=== PATIENT | female | born 1950 | race Caucasian/White ===

== ENCOUNTER 2016-10-10 16:57 | Inpatient (IN) | payer MEDICARE, BC ==
--- NOTE | ~2016-10-10 | DS ---
Discharge Summary [facility] [address] [place]. [address] NAME: TOÑO SY : 50 STATUS : DIS IN PAT#: [id number] AGE: 66 ADM/REG DATE : 10/10/16 MR#: [id number] REPORT SERV DATE: 10/16/16 DICTATED BY: CONNIE WHALEY II DATE: 10/15/16 REPORT STATUS : Draft TRANSCRIBED BY: MODBarbara DATE: 10/15/16 ADMISSION DATE: 10/10/2016 DISCHARGE DATE: 10/15/2016 DISCHARGE DIAGNOSES: 1. Intraabdominal abscess, status post percutaneous drain. 2. Peritoneal mesothelioma. 3. Gastroesophageal reflux disease. 4. Hypertension. 5. Sepsis, POA. CONSULTS: Dr. Olmos with [facility] and Dr. Garcia with [facility]. PROCEDURE: CT-guided drain placement into presacral abscess. BRIEF HISTORY OF PRESENT ILLNESS: The patient is a 66-year-old female with the above history who presents to [facility] due to nausea, vomiting, and fever. For detailed history and physical examination, please see Joselin Ron's note from 10/10/2016. HOSPITAL COURSE: On admission, the patient had a temperature of 101 with a white count of 21.[address] abdomen and pelvis showed a pelvic abscess of about 8.7 x 4.7 cm. The patient was initially on cefepime and Flagyl. Her white count came down. Culture data from the abscess drain showed growth of Enterococcus faecalis and Enterococcus avium, both sensitive to Levaquin. Currently, she has some persistent output from the drain, so we will leave the drain in and extend her course of antibiotics to about eight more days, though she will need followup to reassess drain output for drain removal. The patient is otherwise stable for discharge. DISCHARGE MEDICATIONS: 1. Wellbutrin 200 mg p.o. b.i.d. 2. BuSpar 15 mg p.o. t.i.d. 3. Restasis drops b.i.d. 4. Folic acid 1 mg p.o. daily. 5. Synthroid 125 mcg p.o. daily. 6. Imodium p.r.n. 7. Martha 180 mg p.o. q.h.s. 8. Remeron 45 mg p.o. q.h.s. 9. Prilosec 20 mg p.o. daily. 10.Levaquin 750 mg p.o. daily x8 days. 11.Albuterol p.r.n. 12.Oxycodone 10 mg p.o. q.4 hours p.r.n. 13.Zofran p.r.n. 14.Crestor 10 mg p.o. q.h.s. 15.Lasix 40 mg p.o. daily p.r.n. edema. 16.Klor-Con 40 mEq p.o. daily. 17.Azilsartan/chlorthalidone one tab p.o. daily. Discharge Summary [address] [address] NAME: TOÑO SY : 50 STATUS : DIS IN PAT#: [id number] AGE: 66 ADM/REG DATE : 10/10/16 MR#: [id number] REPORT SERV DATE: 10/16/16 DICTATED BY: CONNIE WHALEY II DATE: 10/15/16 REPORT STATUS : Draft TRANSCRIBED BY: SHANA DATE: 10/15/16 DISCHARGE INSTRUCTIONS: The patient's drain will be left in place, and she will follow up with Dr. Olmos in one to two weeks. Otherwise, she will follow up with Surgery in [place] as scheduled next week. DORIS/SHANA Connie Whaley II, MD / [id number] CC: MD Amada Joy II, M.D.
--- NOTE | ~2016-10-10 | HP ---
History And Physical [place] [id number] [facility] [place]. [address] NAME: TOÑO SY : 50 STATUS : ADM IN [facility]#: [id number] AGE: 66 ADM/REG DATE : 10/10/16 MR#: [id number] REPORT SERV DATE: 10/11/16 DICTATED BY: MANDEEP RON DATE: 10/10/16 REPORT STATUS : Draft TRANSCRIBED BY: SHANA DATE: 10/10/16 DATE OF ADMISSION: 10/10/2016 CHIEF COMPLAINT: Nausea, vomiting, fever. HISTORY OF PRESENT ILLNESS: This patient is a 66-year-old female, who presented as a direct admission from Dr. Huan Olmos's office. The patient does present with a history of peritoneal mesothelioma, recently underwent cytoreductive surgery at [facility]. At that time, she underwent intraperitoneal chemotherapy. The patient presented in Dr. Olmos's office with complaints of fever, chills, nausea, and vomiting. The patient also adds that she has had ongoing abdominal pain, slight drainage at incision site. The patient was recently discharged from [place] on 09/21/2016. The patient states that fever started on 10/07/2016. REVIEW OF SYSTEMS: Otherwise negative review of systems except what is listed above. PAST MEDICAL HISTORY: 1. Peritoneal mesothelioma. 2. Hyperlipidemia. 3. Hypertension. 4. Hypothyroidism. 5. Rheumatoid arthritis. 6. Osteoarthritis. 7. Sleep apnea. PAST SURGICAL HISTORY: 1. Tonsillectomy. 2. Left knee replacement. 3. Lumbar fusion. 4. Exploratory lap, 2015. 5. Cytoreductive surgery, 09/10/2016. SOCIAL HISTORY: The patient is . Lives with daughter. Has 2 children. Denies smoking, denies alcohol, and denies illicit drug use. ALLERGIES: THE PATIENT IS ALLERGIC TO COMPAZINE, PENICILLIN, AND PHENERGAN. PHYSICAL EXAMINATION: VITAL SIGNS: O2 sat is 93% on room air, temperature is 101.1, pulse is 100, respirations are 20, blood pressure is 139/63. GENERAL: This patient is alert and oriented in no acute distress. NECK: No JVD. No nodes. CHEST: Nontender to touch. LUNGS: Clear bilateral. No wheezes, rales, or rhonchi. CARDIOVASCULAR: The patient is tachycardic. No murmurs, rubs, or gallops. History And Physical [place] [address] [facility] [place]. [address] NAME: TOÑO SY : 50 STATUS : ADM IN PAT#: [id number] AGE: 66 ADM/REG DATE : 10/10/16 MR#: [id number] REPORT SERV DATE: 10/11/16 DICTATED BY: MANDEEP RON DATE: 10/10/16 REPORT STATUS : Draft TRANSCRIBED BY: MODL DATE: 10/10/16 ABDOMEN: Tender to touch surgical site, slight drainage at umbilical area. Last bowel movement 10/10/2016. EXTREMITIES: No cyanosis, no edema. LABORATORY DATA: To be obtained. HOME MEDICATION LIST: To be obtained. IMAGING: To be obtained. ASSESSMENT AND PLAN: 1. Possible intraabdominal abscess. The patient's [facility] WBC count was 23,000. We will obtain laboratory data, cultures, CT of abdomen, and the patient will be started on cefepime. 2. Nausea and vomiting due to possible intraabdominal abscess. It has been ongoing for approximately days. The patient will be started on a clear liquid diet with Ensure, IV fluids, and Zofran as needed. 3. Peritoneal mesothelioma. The patient did receive intraperitoneal chemotherapy at [place]. The patient is followed by Dr. Olmos and will consult Oncology to follow during hospital stay. 4. Abdominal pain due to possible intraabdominal abscess. The patient will be provided with Dilaudid p.r.n. as needed for pain. 5. Hypertension. The patient does present with a history of hypertension, we will add hydralazine p.r.n. as needed to monitor blood pressure as needed and we will continue to monitor blood pressure. 6. The patient is a full code. The patient will be followed by Dr. Raul Zarate during her hospital stay. [facility]ANSON/MODL Mandeep Ron NP / [id number] CC: MD Amada Shanks M.D.
[~2016-10-10 16:57] MED LIST: ACET500CAP PO; ALLEGRA180 PO; BUSPAR5 PO; CALTRA600D PO; CO Q-10200 MG PO; CRANBERRY FRUIT PO; CRESTOR10 PO; CYANO1000T PO; EDARBYCLOR 40-1 EAC1 PO; FISH OIL1200 MG PO; FLONASE NAS; FOLIC PO; K500 PO; KLOR-CON M2020 MEQ PO; L40 PO; MAGNESIUM PO; MAXALTODT1 PO; MERIBIN5 MG PO; MUCINEX1200 MG PO; OSTEO BI-FLEX1 EACH PO; PRILO PO; PROAIR HFA INH; REMERON45 MG PO; RESTASIS OPH; ROXICODONE15 MG PO; SYN125 PO; TUMERIC PO; ULTRAM50 PO; WELLBUTRIN200 MG PO; [UNRECOGNIZED DRUG - OTHER] OPH
[2016-10-10 20:31] LABS: BASOPHILS 0.1 %; BASOPHILS ABSOLUTE 0.02 10/3/uL (0.0-0.16); EOSINOPHILS 0.1 %; EOSINOPHILS ABSOLUTE 0.02 10/3/uL (0.0-0.53); IMMATURE GRANULOCYTES 0.3 %; IMMATURE GRANULOCYTES ABSOLUTE 0.06 10/3/uL (0.0-0.11); LYMPHOCYTES 3.3 %; LYMPHOCYTES ABSOLUTE 0.72 10/3/uL (0.67-4.30); MEAN CORPUSCULAR HEMOGLOB 30.8 pg (26.0-34.0); MEAN CORPUSCULAR VOLUME 95.7 fL (80-100); MEAN PLATELET VOLUME 9.4 fL (9.2-13.0); MONOCYTES 5.9 %; MONOCYTES ABSOLUTE 1.29 10/3/uL (0.21-1.20); NEUTROPHILS 90.3 %; NEUTROPHILS ABSOLUTE 19.62 10/3/uL (2.02-8.40); RBC DISTRIBUTION WIDTH 16.3 % (12.0-16.0)
[2016-10-10 20:32] LABS: HEMATOCRIT 26.7 % (36.0-48.0); HEMOGLOBIN 8.6 g/dL (12.0-16.0); MEAN CORPUS HGB CONC 32.2 g/dL (32.0-36.0); RED CELL COUNT 2.79 10/6/uL (4.0-5.6); WHITE BLOOD CELLS 21.7 10/3/uL (4.5-10.5)
[2016-10-10 20:33] LABS: MANUAL DIFF NO %; PLATELET COUNT 611 10/3/uL (150-400)
[2016-10-10 20:46] LABS: ALKALINE PHOSPHATASE 105 U/L (45-117); CHLORIDE, SERUM 97 MMOL/L (96-112); CO2 (CARBON DIOXIDE) 28 MMOL/L (24-34); CREATININE 1.21 MG/DL (0.55-1.02); GFR AFRICAN AMERICAN 54 ML/MIN (>=60); GFR NON AFRICAN AMERICAN 47 ML/MIN (>=60); GLUCOSE, SERUM 109 MG/DL (60-99); POTASSIUM, SERUM 3.1 MMOL/L (3.5-5.3); SGOT(AST) 15 U/L (5-40); SGPT(ALT) 8 U/L (5-65); SODIUM, SERUM 137 MMOL/L (135-148); TOTAL BILIRUBIN 0.8 MG/DL (0-1.2); TOTAL PROTEIN 7.2 G/DL (6.0-8.5)
[2016-10-10 20:47] LABS: A/G RATIO 0.5 (0.7-1.9); ALBUMIN 2.5 G/DL (3.5-5.0); BUN (BLOOD UREA NITROGEN) 7 MG/DL (6-23); CALCIUM, SERUM 8.4 MG/DL (8.5-10.4); GLOBULIN 4.7 G/DL (2.5-4.1)
[2016-10-10 21:22] LABS: PROCALCITONIN 0.52 ng/mL (<0.5)
[2016-10-11 06:04] LABS: BASOPHILS 0.2 %; BASOPHILS ABSOLUTE 0.03 10/3/uL (0.0-0.16); EOSINOPHILS 0.5 %; EOSINOPHILS ABSOLUTE 0.08 10/3/uL (0.0-0.53); HEMATOCRIT 27.1 % (36.0-48.0); HEMOGLOBIN 8.6 g/dL (12.0-16.0); IMMATURE GRANULOCYTES 0.3 %; IMMATURE GRANULOCYTES ABSOLUTE 0.05 10/3/uL (0.0-0.11); LYMPHOCYTES 7.5 %; LYMPHOCYTES ABSOLUTE 1.31 10/3/uL (0.67-4.30); MEAN CORPUS HGB CONC 31.7 g/dL (32.0-36.0); MEAN CORPUSCULAR HEMOGLOB 30.7 pg (26.0-34.0); MEAN CORPUSCULAR VOLUME 96.8 fL (80-100); MEAN PLATELET VOLUME 9.2 fL (9.2-13.0); MONOCYTES 7.2 %; MONOCYTES ABSOLUTE 1.26 10/3/uL (0.21-1.20); NEUTROPHILS 84.3 %; NEUTROPHILS ABSOLUTE 14.77 10/3/uL (2.02-8.40); PLATELET COUNT 597 10/3/uL (150-400); RBC DISTRIBUTION WIDTH 16.4 % (12.0-16.0); WHITE BLOOD CELLS 17.5 10/3/uL (4.5-10.5)
[2016-10-11 06:07] LABS: MANUAL DIFF NO %
[2016-10-11] MEDS ORDERED: PROAIR HFA PO (17:14)
[2016-10-11] MEDS ORDERED: CLINDA150 PO (17:14)
[2016-10-11] MEDS ORDERED: RESTASIS OPH (17:14)
[2016-10-11] MEDS ORDERED: FOLIC PO (17:15)
[2016-10-11] MEDS ORDERED: OXYCOD PO (17:16)
[2016-10-11] MEDS ORDERED: BUSPAR15 M1 PO (17:16)
[2016-10-11] MEDS ORDERED: ZOFRAN8 PO (17:17)
[2016-10-11] MEDS ORDERED: CIP5 PO (17:17)
[2016-10-11] MEDS ORDERED: IMOD PO (17:18)
[2016-10-11] MEDS ORDERED: REMERON45 MG PO (17:18)
[2016-10-11] MEDS ORDERED: LOVENOX SC (17:18)
[2016-10-11] MEDS ORDERED: CRESTOR10 PO (17:18)
[2016-10-11] MEDS ORDERED: TREXALL10 MG PO (17:19)
[2016-10-11] MEDS ORDERED: OXYCON10 PO (17:19)
[2016-10-11] MEDS ORDERED: L40 PO (17:20)
[2016-10-11] MEDS ORDERED: WELLBUTRIN200 MG PO (17:21)
[2016-10-11] MEDS ORDERED: KLOR-CON M2020 MEQ PO (17:21)
[2016-10-11] MEDS ORDERED: EDARBYCLOR 40-1 EAC1 PO (17:21)
[2016-10-11] MEDS ORDERED: LEVOTHYROXIN125 MCG PO (17:21)
[2016-10-11] MEDS ORDERED: PRILO PO (17:22)
[2016-10-11] MEDS ORDERED: ALLEGRA180 PO (17:22)
[2016-10-12 05:22] LABS: BASOPHILS 0.4 %; BASOPHILS ABSOLUTE 0.05 10/3/uL (0.0-0.16); EOSINOPHILS 2.3 %; EOSINOPHILS ABSOLUTE 0.33 10/3/uL (0.0-0.53); HEMATOCRIT 25.8 % (36.0-48.0); HEMOGLOBIN 8.2 g/dL (12.0-16.0); IMMATURE GRANULOCYTES 0.2 %; IMMATURE GRANULOCYTES ABSOLUTE 0.03 10/3/uL (0.0-0.11); LYMPHOCYTES 7.4 %; LYMPHOCYTES ABSOLUTE 1.04 10/3/uL (0.67-4.30); MEAN CORPUS HGB CONC 31.8 g/dL (32.0-36.0); MEAN CORPUSCULAR HEMOGLOB 30.9 pg (26.0-34.0); MEAN CORPUSCULAR VOLUME 97.4 fL (80-100); MEAN PLATELET VOLUME 8.9 fL (9.2-13.0); MONOCYTES 6.2 %; MONOCYTES ABSOLUTE 0.87 10/3/uL (0.21-1.20); NEUTROPHILS 83.5 %; NEUTROPHILS ABSOLUTE 11.79 10/3/uL (2.02-8.40); PLATELET COUNT 549 10/3/uL (150-400); RBC DISTRIBUTION WIDTH 16.6 % (12.0-16.0); RED CELL COUNT 2.65 10/6/uL (4.0-5.6); WHITE BLOOD CELLS 14.1 10/3/uL (4.5-10.5)
[2016-10-12 05:24] LABS: MANUAL DIFF NO %
[2016-10-12 05:35] LABS: BUN (BLOOD UREA NITROGEN) 8 MG/DL (6-23); CALCIUM, SERUM 8.7 MG/DL (8.5-10.4); CHLORIDE, SERUM 101 MMOL/L (96-112); CO2 (CARBON DIOXIDE) 28 MMOL/L (24-34); GFR AFRICAN AMERICAN 55 ML/MIN (>=60); GFR NON AFRICAN AMERICAN 47 ML/MIN (>=60); GLUCOSE, SERUM 99 MG/DL (60-99); SODIUM, SERUM 138 MMOL/L (135-148)
[2016-10-12 05:37] LABS: INTERNATIONAL NORMAL RATI 1.4 UNITS (-); PARTIAL THROMBO TIME 38.4 SEC (22.5-37.2)
[2016-10-12 05:46] LABS: PROTIME (NOT ORD) 17.1 SEC (12.0-14.5)
[2016-10-13 04:20] LABS: BASOPHILS 0.3 %; BASOPHILS ABSOLUTE 0.04 10/3/uL (0.0-0.16); EOSINOPHILS 2.1 %; EOSINOPHILS ABSOLUTE 0.26 10/3/uL (0.0-0.53); HEMATOCRIT 26.5 % (36.0-48.0); HEMOGLOBIN 8.4 g/dL (12.0-16.0); IMMATURE GRANULOCYTES 0.2 %; IMMATURE GRANULOCYTES ABSOLUTE 0.03 10/3/uL (0.0-0.11); LYMPHOCYTES 6.7 %; LYMPHOCYTES ABSOLUTE 0.83 10/3/uL (0.67-4.30); MEAN CORPUS HGB CONC 31.7 g/dL (32.0-36.0); MEAN CORPUSCULAR HEMOGLOB 30.9 pg (26.0-34.0); MEAN CORPUSCULAR VOLUME 97.4 fL (80-100); MEAN PLATELET VOLUME 9.1 fL (9.2-13.0); MONOCYTES 8.1 %; NEUTROPHILS 82.6 %; NEUTROPHILS ABSOLUTE 10.22 10/3/uL (2.02-8.40); PLATELET COUNT 572 10/3/uL (150-400); RBC DISTRIBUTION WIDTH 16.7 % (12.0-16.0); RED CELL COUNT 2.72 10/6/uL (4.0-5.6); WHITE BLOOD CELLS 12.4 10/3/uL (4.5-10.5)
[2016-10-13 04:22] LABS: MANUAL DIFF NO %
[2016-10-13 04:36] LABS: BUN (BLOOD UREA NITROGEN) 7 MG/DL (6-23); CALCIUM, SERUM 8.7 MG/DL (8.5-10.4); CHLORIDE, SERUM 102 MMOL/L (96-112); CO2 (CARBON DIOXIDE) 27 MMOL/L (24-34); GFR AFRICAN AMERICAN 61 ML/MIN (>=60); GFR NON AFRICAN AMERICAN 52 ML/MIN (>=60); GLUCOSE, SERUM 87 MG/DL (60-99); SODIUM, SERUM 140 MMOL/L (135-148)
[2016-10-13 04:37] LABS: POTASSIUM, SERUM 2.9 MMOL/L (3.5-5.3)
[2016-10-14 03:54] LABS: HEMATOCRIT 26.4 % (36.0-48.0); HEMOGLOBIN 8.4 g/dL (12.0-16.0); MEAN CORPUS HGB CONC 31.8 g/dL (32.0-36.0); MEAN CORPUSCULAR HEMOGLOB 31.1 pg (26.0-34.0); MEAN CORPUSCULAR VOLUME 97.8 fL (80-100); MEAN PLATELET VOLUME 9.2 fL (9.2-13.0); PLATELET COUNT 508 10/3/uL (150-400); RBC DISTRIBUTION WIDTH 16.5 % (12.0-16.0); WHITE BLOOD CELLS 11.8 10/3/uL (4.5-10.5)
[2016-10-14 04:02] LABS: MANUAL DIFF YES %
[2016-10-14 04:08] LABS: A/G RATIO 0.5 (0.7-1.9); ALBUMIN 1.9 G/DL (3.5-5.0); ALKALINE PHOSPHATASE 69 U/L (45-117); BUN (BLOOD UREA NITROGEN) 5 MG/DL (6-23); CALCIUM, SERUM 8.2 MG/DL (8.5-10.4); CHLORIDE, SERUM 105 MMOL/L (96-112); CO2 (CARBON DIOXIDE) 26 MMOL/L (24-34); CREATININE 0.93 MG/DL (0.55-1.02); GFR AFRICAN AMERICAN 74 ML/MIN (>=60); GFR NON AFRICAN AMERICAN 64 ML/MIN (>=60); GLOBULIN 3.8 G/DL (2.5-4.1); GLUCOSE, SERUM 85 MG/DL (60-99); POTASSIUM, SERUM 3.2 MMOL/L (3.5-5.3); SGOT(AST) 12 U/L (5-40); SGPT(ALT) 8 U/L (5-65); SODIUM, SERUM 141 MMOL/L (135-148); TOTAL BILIRUBIN 0.7 MG/DL (0-1.2); TOTAL PROTEIN 5.7 G/DL (6.0-8.5)
[2016-10-14 04:16] LABS: BAND NEUTROPHILS 1 %; BASOPHILS 1 %; BASOPHILS ABSOLUTE (CALC) 0.12 10/3/uL (0.0-0.16); EOSINOPHILS 1 %; EOSINOPHILS ABSOLUTE (CALC) 0.12 10/3/uL (0.0-0.53); LYMPHOCYTES 4 %; LYMPHOCYTES ABSOLUTE (CALC) 0.47 10/3/uL (0.67-4.30); MONOCYTES 4 %; MONOCYTES ABSOLUTE (CALC) 0.47 10/3/uL (0.21-1.20); NEUTROPHILS ABSOLUTE (CALC) 10.62 10/3/uL (2.02-8.40); PLATELET ESTIMATE SLT INC (ADEQUATE); SEGMENTED NEUTROPHIL (0) 89 %; TOTAL NUCLEATED CELLS 100
[2016-10-14 04:17] LABS: TEARDROP SHAPED RBCS FEW (3-10/OIF)
[2016-10-15 06:34] LABS: BASOPHILS 0.4 %; BASOPHILS ABSOLUTE 0.06 10/3/uL (0.0-0.16); EOSINOPHILS ABSOLUTE 0.55 10/3/uL (0.0-0.53); HEMOGLOBIN 9.2 g/dL (12.0-16.0); IMMATURE GRANULOCYTES 0.7 %; LYMPHOCYTES 9.3 %; LYMPHOCYTES ABSOLUTE 1.27 10/3/uL (0.67-4.30); MEAN CORPUS HGB CONC 31.2 g/dL (32.0-36.0); MEAN CORPUSCULAR HEMOGLOB 30.2 pg (26.0-34.0); MEAN CORPUSCULAR VOLUME 96.7 fL (80-100); MEAN PLATELET VOLUME 8.9 fL (9.2-13.0); MONOCYTES ABSOLUTE 0.96 10/3/uL (0.21-1.20); NEUTROPHILS 78.6 %; NEUTROPHILS ABSOLUTE 10.69 10/3/uL (2.02-8.40); PLATELET COUNT 630 10/3/uL (150-400); RBC DISTRIBUTION WIDTH 16.6 % (12.0-16.0); RED CELL COUNT 3.05 10/6/uL (4.0-5.6); WHITE BLOOD CELLS 13.6 10/3/uL (4.5-10.5)
[2016-10-15 06:37] LABS: HEMATOCRIT 29.5 % (36.0-48.0); MANUAL DIFF NO %
[2016-10-15 06:46] LABS: BUN (BLOOD UREA NITROGEN) 3 MG/DL (6-23); CALCIUM, SERUM 8.5 MG/DL (8.5-10.4); CHLORIDE, SERUM 106 MMOL/L (96-112); CO2 (CARBON DIOXIDE) 22 MMOL/L (24-34); GFR AFRICAN AMERICAN 68 ML/MIN (>=60); GFR NON AFRICAN AMERICAN 59 ML/MIN (>=60); GLUCOSE, SERUM 96 MG/DL (60-99); POTASSIUM, SERUM 3.7 MMOL/L (3.5-5.3); SODIUM, SERUM 140 MMOL/L (135-148)
[2016-10-15] MEDS ORDERED: LEVAQUIN750 MG PO (11:23)
[2016-12-05] MEDS ORDERED: LOM PO (11:37)
[2017-02-16] MEDS ORDERED: AMIT25 PO (10:22)
[2017-02-16] MEDS ORDERED: MICRO-K10 MEQ PO (10:28)
[2017-02-16] MEDS ORDERED: MUCINEX1200 MG PO (10:29)
[2017-02-16] MEDS ORDERED: FLONASE NAS (10:30)
[2017-02-16] MEDS ORDERED: PROAIRRESP INH (10:31)
== END 2016-10-15 13:55 | disposition home health service (06) | DRG 871 ==
LOC: 4EA 16:57
PROVIDERS: Internal Medicine; Nurse Practitioner Adult Health
PROC: 0W9L30Z Drainage of Lower Back with Drainage Device, Percutaneous Approach (ICD-10-PCS; principal; 2016-10-12)
DX: A41.9 Sepsis, unspecified organism (principal); K65.1 Peritoneal abscess; C45.1 Mesothelioma of peritoneum; I10 Essential (primary) hypertension; K21.9 Gastro-esophageal reflux disease without esophagitis; E03.9 Hypothyroidism, unspecified; F32.9 Major depressive disorder, single episode, unspecified
CPT/HCPCS: 49083; 49418; 74177; 80048; 80053; 83735; 84132; 84145; 85025; 85610; 85730; 87040; 87070; 87075; 87077; 87186; 87205; 97161-GP; A9270-GY; C1729; C1769; G8978-CJ-GP; G8979-CJ-GP; G8980-CJ-GP; J0692; J1170; J1956; J2250; J2405; J3010